=== PATIENT | female | born 1965 | race Caucasian/White ===

== ENCOUNTER 2025-08-26 13:35 | Emergency (ER) | payer OTHER ==
[~2025-08-26] VITALS: Ht 172.7 cm; Wt 73.5 kg
[2025-08-26 14:09] VITALS: TEMP 98
[2025-08-26] MEDS: METOCLOPRAMIDE HCL 10 MG/2ML VIAL IV ONE (14:29)
[2025-08-26] MEDS: SODIUM CHLORIDE 0.9% 1000ML 1,000 ML IV SCH (14:29)
[2025-08-26] MEDS: DIPHENHYDRAMINE HCL 25 MG CAP PO ONE (14:29)
[2025-08-26] MEDS: KETOROLAC TROMETHAMINE 30 MG/ML VIAL IV STA (14:29)
[2025-08-26 15:41] VITALS: PULSE 73; RESP 21
[2025-08-26] MEDS: DEXAMETHASONE SOD PHOS 10 MG/1 ML VIAL IV ONE (17:24)
[2025-08-26] MEDS: MAGNESIUM SULF 1GRAM/DEXTROSE 100 ML IV ONE (17:24)
[2025-08-26 17:54] VITALS: BP 138/70; PULSE 68; RESP 16; TEMP 98.7; O2SAT 99
== END 2025-08-26 17:56 | disposition home or self-care (01) ==
LOC: ER 13:47 → EDBD 13:47 → ER 17:56
DX: R51.9 Headache, unspecified (principal); R42 Dizziness and giddiness; R20.0 Anesthesia of skin; I10 Essential (primary) hypertension; F17.210 Nicotine dependence, cigarettes, uncomplicated
CPT/HCPCS: 70450; 99284; J1100; J1885; J2765; J3475; J7030